=== PATIENT | female | born 1940 | race Caucasian/White ===

== ENCOUNTER 2019-12-15 09:52 | Outpatient (CLI) | payer MEDICARE, SELFPAY ==
[2019-12-15 11:07] LABS: Erythrocyte Sedimentation Rate 14 mm/hr (0-20)
[2019-12-15 11:51] LABS: Alanine Aminotransferase 21 U/L (14-59); Albumin Level 3.8 g/dL (3.4-5.0); Alkaline Phosphatase 85 U/L (46-116); Anion Gap 15.3 mmol/L (7-16); Aspartate Amino Transferase 54 U/L (15-37); Bilirubin,Total 0.6 mg/dL (0.00-1.00); Blood Urea Nitrogen 16 mg/dL (7-18); Calcium 8.9 mg/dL (8.5-10.1); Carbon Dioxide 28 mmol/L (21-32); Chloride 107 mmol/L (98-108); Estimated Glomerular Filt Rate > 60; Glucose 115 mg/dL (70-99); Osmolality Calculated 304 mOsm/kg (285-295); Potassium 4.3 mmol/L (3.5-5.1); Sodium 146 mmol/L (136-145); Total Protein 7.1 g/dL (6.4-8.2)
== END 2019-12-15 09:53 | disposition home or self-care (01) ==
LOC: CHSLAB 09:54
PROVIDERS: PCP Internal Medicine; Visit Provider Internal Medicine
DX: M15.0 Primary generalized (osteo)arthritis (principal); R76.0 Raised antibody titer
CPT/HCPCS: 36415; 80053; 85652; 86038; 86039

== ENCOUNTER 2020-03-17 09:21 | Outpatient (CLI) | payer MEDICARE, SELFPAY ==
[2020-03-17 09:32] LABS: Hematocrit 42.9 % (35.0-42.0); Hemoglobin 14.1 g/dL (11.7-13.8); Mean Corpuscular HGB Conc 32.9 g/dL (32.0-36.0); Mean Corpuscular Hemoglobin 31.3 pg (27.0-31.0); Mean Corpuscular Volume 95.3 fL (78.0-102.0); Mean Platelet Volume 11.5 fl (9.2-11.8); Platelet Count Result 200 K/mm3 (150-420); Red Cell Distribution Width 13.7 % (11.6-14.4); White Blood Count 7.4 K/mm3 (4.8-10.8)
[2020-03-17 09:46] LABS: Add Urine Microscopic? YES; Appearance Urine Clear (Clear); Bilirubin Urine Negative (Negative); Blood Urine Negative (Negative); Color Urine Yellow (Yellow); Glucose Urine UA Negative (Negative); Ketones Urine Negative (Negative); Leukocyte Esterase Ur 1+ (Negative); Nitrate Urine Negative (Negative); Protein Urine Negative (Negative); Urobilinogen Urine 0.2 mg/dL (0.2-1.0)
[2020-03-17 09:51] LABS: Bacteria Urine 1+ /hpf; Mucus Urine Few /lpf; RBC Urine 0-2 /hpf (0-2); Squamous Epithelial Cell Urine Few /hpf (Few)
[2020-03-17 10:05] LABS: Hemoglobin A1C 6.4 % (<5.7)
[2020-03-17 10:10] LABS: Band Neutrophils Percent 0 % (0-6); Basophils Absolute Manual 0.22 K/mm3 (0-0.1); Basophils Percent Manual 3 % (0-1); Eosinophils Absolute Manual 0.96 K/mm3 (0.02-0.5); Eosinophils Percent Manual 13 % (1-6); Lymphocytes Percent Manual 23 % (18-44); Monocytes Absolute Manual 0.51 K/mm3 (0.1-0.90); Monocytes Percent Manual 7 % (3-9); Neutrophils Absolute Manual 3.99 K/mm3 (1.7-7.2); Neutrophils Percent Manual 54 % (46-73); Platelet Estimate Adequate (Adequate); Total Cells Counted 100
[2020-03-17 10:29] LABS: Creatinine Urine 151.65 mg/dL (40-278)
[2020-03-17 10:57] LABS: MALB Creatinine Ratio 11.2 mg/g (0-30)
[2020-03-17 11:16] LABS: Anion Gap 10.3 mmol/L (7-16); Blood Urea Nitrogen 21 mg/dL (7-18); Carbon Dioxide 30 mmol/L (21-32); Chloride 105 mmol/L (98-108); Estimated Glomerular Filt Rate 56; Potassium 4.3 mmol/L (3.5-5.1); Sodium 141 mmol/L (136-145)
[2020-03-17 11:17] LABS: Alanine Aminotransferase 18 U/L (14-59); Albumin Level 3.7 g/dL (3.4-5.0); Aspartate Amino Transferase 47 U/L (15-37); Bilirubin,Total 0.6 mg/dL (0.00-1.00); Calcium 9.1 mg/dL (8.5-10.1); Creatine Kinase 92 U/L (26-192); Glucose 120 mg/dL (70-99); Osmolality Calculated 296 mOsm/kg (285-295); Total Protein 6.7 g/dL (6.4-8.2); Uric Acid 4.1 mg/dL (2.6-6.0)
[2020-03-17 11:18] LABS: Alkaline Phosphatase 78 U/L (46-116); Cholesterol 172 mg/dL (0-200); HDL Direct 97 mg/dL (40-60); LDL Cholesterol Calculated 59 mg/dL (<130); Triglycerides 79 mg/dL (0-150)
[2020-03-21 20:24] LABS: Vitamin D 25 Hydroxy 25 ng/mL (30-100)
== END 2020-03-17 09:22 | disposition home or self-care (01) ==
LOC: CHSLAB 09:24
PROVIDERS: PCP Internal Medicine; Visit Provider Internal Medicine
DX: E78.2 Mixed hyperlipidemia (principal); E11.9 Type 2 diabetes mellitus without complications; I10 Essential (primary) hypertension; E79.0 Hyperuricemia without signs of inflammatory arthritis and tophaceous disease; M81.0 Age-related osteoporosis without current pathological fracture
CPT/HCPCS: 36415; 80053; 80061; 81001; 82043; 82306; 82550; 83036; 84550; 85025

== ENCOUNTER 2020-07-04 16:03 | Outpatient (CLI) | payer MEDICARE, SELFPAY ==
[2020-07-04 17:45] LABS: Alanine Aminotransferase 20 U/L (14-59); Albumin Level 4.1 g/dL (3.4-5.0); Alkaline Phosphatase 97 U/L (46-116); Anion Gap 9 mmol/L (8-16); Aspartate Amino Transferase 45 U/L (15-37); Bilirubin,Total 0.4 mg/dL (0.00-1.00); Blood Urea Nitrogen 19 mg/dL (7-18); Calcium 9.3 mg/dL (8.5-10.1); Carbon Dioxide 30 mmol/L (21-32); Chloride 103 mmol/L (98-108); Estimated Glomerular Filt Rate 56; Glucose 103 mg/dL (70-99); Osmolality Calculated 296 mOsm/kg (285-295); Potassium 4.4 mmol/L (3.5-5.1); Sodium 142 mmol/L (136-145); Total Protein 7.1 g/dL (6.4-8.2)
== END 2020-07-04 16:04 | disposition home or self-care (01) ==
LOC: CHSLAB 16:05
PROVIDERS: PCP Internal Medicine; Visit Provider Internal Medicine
DX: R94.5 Abnormal results of liver function studies (principal); I10 Essential (primary) hypertension
CPT/HCPCS: 36415; 80053

== ENCOUNTER 2020-09-26 08:12 | Outpatient (CLI) | payer MEDICARE, SELFPAY ==
[2020-09-26 08:27] LABS: Appearance Urine Clear (Clear); Basophils Absolute Auto 0.06 K/mm3 (0.00-0.10); Bilirubin Urine Negative (Negative); Color Urine Yellow (Yellow); Eosinophils Absolute Auto 0.31 K/mm3 (0.02-0.50); Eosinophils Percent Auto 5.1 % (1.0-6.0); Glucose Urine UA Negative (Negative); Hematocrit 43.2 % (35.0-42.0); Immature Granulocyte Absolute 0.02 K/mm3 (0.00-0.00); Immature Granulocyte Percent A 0.3 % (0.0-0.0); Ketones Urine Negative (Negative); Leukocyte Esterase Ur Negative (Negative); Lymphocytes Absolute Auto 1.72 K/mm3 (1.10-4.50); Lymphocytes Percent Auto 28.4 % (18.0-42.0); Mean Corpuscular HGB Conc 32.4 g/dL (32.0-36.0); Mean Corpuscular Hemoglobin 31.6 pg (27.0-31.0); Mean Corpuscular Volume 97.5 fL (78.0-102.0); Mean Platelet Volume 11.3 fl (9.2-11.8); Monocytes Absolute Auto 0.45 K/mm3 (0.10-0.90); Monocytes Percent Auto 7.4 % (2.0-11.0); Neutrophils Absolute Auto 3.5 K/mm3 (1.7-7.2); Neutrophils Percent Auto 57.8 % (50.0-70.0); Nitrate Urine Negative (Negative); Platelet Count Result 191 K/mm3 (150-420); Protein Urine Negative (Negative); Red Blood Count 4.43 M/mm3 (4.20-5.40); Red Cell Distribution Width 13.7 % (11.6-14.4); Specific Grav Ur 1.025 (1.010-1.020); Urobilinogen Urine 0.2 mg/dL (0.2-1.0); White Blood Count 6.1 K/mm3 (4.8-10.8); pH Urine 5.5 (5.0-8.0)
[2020-09-26 08:33] LABS: Add Urine Microscopic? YES; Blood Urine Trace-lysed (Negative); RBC Urine 0-2 /hpf (0-2)
[2020-09-26 08:34] LABS: Bacteria Urine None seen /hpf; Squamous Epithelial Cell Urine Rare /hpf (Few); WBC Urine 0-3 /hpf (0-3)
[2020-09-26 08:35] LABS: Creatinine Urine 93.29 mg/dL (40-278); MALB Creatinine Ratio 21.7 mg/g (0-30); Microalbumin Urine Random 20.3 mg/L
[2020-09-26 08:39] LABS: Hemoglobin A1C 6.4 % (<5.7)
[2020-09-26 09:32] LABS: Alanine Aminotransferase 19 U/L (14-59); Alkaline Phosphatase 73 U/L (46-116); Anion Gap 9 mmol/L (8-16); Aspartate Amino Transferase 44 U/L (15-37); Bilirubin,Total 0.8 mg/dL (0.00-1.00); Blood Urea Nitrogen 15 mg/dL (7-18); Calcium 9.6 mg/dL (8.5-10.1); Carbon Dioxide 29 mmol/L (21-32); Chloride 104 mmol/L (98-108); Cholesterol 179 mg/dL (0-200); Creatine Kinase 66 U/L (26-192); Estimated Glomerular Filt Rate 57; Free T3 2.89 pg/mL (2.18-3.98); Glucose 125 mg/dL (70-99); HDL Direct 91 mg/dL (40-60); LDL Cholesterol Calculated 67 mg/dL (<130); Osmolality Calculated 295 mOsm/kg (285-295); Sodium 142 mmol/L (136-145); Thyroid Stimulating Hormone 2.59 uIU/mL (0.36-3.74); Triglycerides 106 mg/dL (0-150); Uric Acid 3.8 mg/dL (2.6-6.0)
[2020-09-26 09:52] LABS: Free T4 Free Thyroxine 1.31 ng/dL (0.76-1.46)
== END 2020-09-26 08:13 | disposition home or self-care (01) ==
LOC: CHSLAB 08:13
PROVIDERS: PCP Internal Medicine; Visit Provider Internal Medicine
DX: E79.0 Hyperuricemia without signs of inflammatory arthritis and tophaceous disease (principal); E11.9 Type 2 diabetes mellitus without complications; I10 Essential (primary) hypertension; E78.2 Mixed hyperlipidemia; E04.1 Nontoxic single thyroid nodule; C50.911 Malignant neoplasm of unspecified site of right female breast
CPT/HCPCS: 36415; 80053; 80061; 81001; 82043; 82550; 83036; 84439; 84443; 84481; 84550; 85025

== ENCOUNTER 2020-10-19 10:25 | Outpatient (CLI) | payer MEDICARE, SELFPAY ==
--- NOTE | 2020-10-21 10:24 | WPDHOLTEREM ---
Holter/Event Monitor Holter/Event Monitor Date of procedure: 10/21/20 Procedure Type: 24 hour holter monitor Indications: Palpitations Conclusion: 1. 24 hour holter monitor on 10/19/19. 2. Underlying rhythm is sinus rhythm. HR range 42-109 bpm; average HR 64 bpm. 3. There are 744 premature supraventricular complexes, 134 supraventricular couplets, 2 supraventricular triplets, 23 supraventricular bigeminy and 3 supraventricular trigeminy. No supraventricular tachycardia. 4. There are 10 premature ventricular complexes. No ventricular tachycardia. 5. No sinoatrial or atrioventricular blocks. There is a pause of about 2 seconds at 03:08. 6. No symptoms available for correlation.
== END 2020-10-19 10:26 | disposition home or self-care (01) ==
PROVIDERS: PCP Internal Medicine; Visit Provider Internal Medicine
DX: I49.9 Cardiac arrhythmia, unspecified (principal)
CPT/HCPCS: 93225; 93226

== ENCOUNTER 2020-10-31 16:27 | Outpatient (CLI) | payer OTHER, SELFPAY ==
--- NOTE | ~2020-10-31 | CT_ITS ---
EXAMINATION: CT chest abdomen w con DATE: 10/31/2020 18:02 INDICATION: Left chest and left upper quadrant pain TECHNIQUE: Transaxial computed tomographic images of the chest and abdomen were obtained after the ad ministration of 100 cc of Omnipaque 350 intravenous contrast. The dose-length product (DLP) was 1218. 22 mGy-cm. Automated exposure control and iterative reconstruction technique were employed. COMPARISON: 07/16/2016 FINDINGS: CHEST CT: There are fractures of the left seventh through 10th ribs, minimally displaced at the ninth and 10th ribs. There are airspace opacities of the lingula and left lower lobe. A small left pleural effusion is present. There is no pneumothorax. No pathologically enlarged thoracic lymph nodes are identified. The heart size is normal. A small sliding hiatal hernia is noted. The thoracic aorta is unremarkable . There is calcified atherosclerosis. ABDOMEN CT: The liver, spleen, pancreas, gallbladder, and adrenal glands are normal. The left kidney is unremarka ble. There is a 2.7 cm cyst in the lower pole of the right kidney. There is no free intraperitoneal g as or evidence of bowel obstruction. There are no pathologically enlarged abdominal lymph nodes. Ther e is no free abdominal fluid. There is severe lumbar spondylosis. Colonic diverticulosis is present w ithout evidence of diverticulitis. IMPRESSION: 1. Fractures of the left seventh through 10th ribs, minimally displaced at the 9 and 10th ribs. 2. Airspace opacities in the lingula and left lower lobe adjacent to the rib fractures which could re flect atelectasis or possibly pulmonary contusion. 3. Small left pleural effusion. Reviewed, dictated and finalized at location A. ED HEALTH INSTRUCTOR IMPRESSION: 1. Fractures of the left seventh through 10th ribs, minimally displaced at the 9 and 10th ribs. 2. Airspace opacities in the lingula and left lower lobe adjacent to the rib fr actures which could reflect atelectasis or possibly pulmonary contusion. 3. Small left pleural effusion.
[2020-10-31 17:10] LABS: Estimated Glomerular Filt Rate > 60
== END 2020-10-31 16:28 | disposition home or self-care (01) ==
PROVIDERS: PCP Internal Medicine; Visit Provider Internal Medicine
DX: R07.9 Chest pain, unspecified (principal); R10.12 Left upper quadrant pain
CPT/HCPCS: 71260; 74160; Q9967

== ENCOUNTER 2020-11-21 09:38 | Outpatient (CLI) | payer OTHER, SELFPAY ==
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
== END 2020-11-21 09:39 | disposition home or self-care (01) ==
LOC: CHSIMG 09:41
PROVIDERS: PCP Internal Medicine; Visit Provider Internal Medicine
DX: R07.81 Pleurodynia (principal)
CPT/HCPCS: 71046

== ENCOUNTER 2021-03-27 08:04 | Outpatient (CLI) | payer MEDICARE, SELFPAY ==
[2021-03-27 08:14] LABS: Basophils Absolute Auto 0.07 K/mm3 (0.00-0.10); Eosinophils Absolute Auto 0.35 K/mm3 (0.02-0.50); Eosinophils Percent Auto 4.9 % (1.0-6.0); Hematocrit 41.6 % (35.0-42.0); Immature Granulocyte Absolute 0.03 K/mm3 (0.00-0.00); Immature Granulocyte Percent A 0.4 % (0.0-0.0); Lymphocytes Absolute Auto 1.88 K/mm3 (1.10-4.50); Lymphocytes Percent Auto 26.4 % (18.0-42.0); Mean Corpuscular HGB Conc 33.7 g/dL (32.0-36.0); Mean Corpuscular Hemoglobin 32.5 pg (27.0-31.0); Mean Corpuscular Volume 96.5 fL (78.0-102.0); Mean Platelet Volume 10.6 fl (9.2-11.8); Monocytes Absolute Auto 0.58 K/mm3 (0.10-0.90); Monocytes Percent Auto 8.1 % (2.0-11.0); Neutrophils Absolute Auto 4.2 K/mm3 (1.7-7.2); Neutrophils Percent Auto 59.2 % (50.0-70.0); Platelet Count Result 171 K/mm3 (150-420); Red Blood Count 4.31 M/mm3 (4.20-5.40); Red Cell Distribution Width 13.1 % (11.6-14.4); White Blood Count 7.1 K/mm3 (4.8-10.8)
[2021-03-27 08:20] LABS: Appearance Urine Clear (Clear); Bilirubin Urine Negative (Negative); Blood Urine Negative (Negative); Glucose Urine UA Negative (Negative); Ketones Urine Negative (Negative); Leukocyte Esterase Ur 1+ (Negative); Nitrate Urine Negative (Negative); Protein Urine Negative (Negative); Specific Grav Ur 1.015 (1.010-1.020); Urobilinogen Urine 0.2 mg/dL (0.2-1.0); pH Urine 5.5 (5.0-8.0)
[2021-03-27 08:27] LABS: Hemoglobin A1C 6.7 % (<5.7)
[2021-03-27 08:30] LABS: Add Urine Microscopic? YES; Color Urine Light Yellow (Yellow)
[2021-03-27 08:32] LABS: RBC Urine 0-2 /hpf (0-2); Squamous Epithelial Cell Urine Few /hpf (Few)
[2021-03-27 08:33] LABS: Bacteria Urine 2+ /hpf
[2021-03-27 08:58] LABS: Alanine Aminotransferase 27 U/L (14-59); Albumin Level 3.8 g/dL (3.4-5.0); Alkaline Phosphatase 72 U/L (46-116); Anion Gap 10 mmol/L (8-16); Aspartate Amino Transferase 45 U/L (15-37); Bilirubin,Total 0.7 mg/dL (0.00-1.00); Blood Urea Nitrogen 18 mg/dL (7-18); Calcium 9.2 mg/dL (8.5-10.1); Carbon Dioxide 28 mmol/L (21-32); Chloride 103 mmol/L (98-108); Cholesterol 165 mg/dL (0-200); Creatine Kinase 108 U/L (26-192); Estimated Glomerular Filt Rate 51; Glucose 141 mg/dL (70-99); HDL Direct 86 mg/dL (40-60); LDL Cholesterol Calculated 62 mg/dL (<130); Osmolality Calculated 295 mOsm/kg (285-295); Sodium 141 mmol/L (136-145); Total Protein 6.6 g/dL (6.4-8.2); Triglycerides 84 mg/dL (0-150); Uric Acid 4.5 mg/dL (2.6-6.0)
== END 2021-03-27 08:05 | disposition home or self-care (01) ==
LOC: CHSLAB 08:07
PROVIDERS: PCP Internal Medicine; Visit Provider Internal Medicine
DX: E11.9 Type 2 diabetes mellitus without complications (principal); I10 Essential (primary) hypertension; E78.2 Mixed hyperlipidemia; E79.0 Hyperuricemia without signs of inflammatory arthritis and tophaceous disease
CPT/HCPCS: 36415; 80053; 80061; 81001; 82550; 83036; 84550; 85025

== ENCOUNTER 2021-04-18 09:02 | Outpatient (CLI) | payer MEDICARE, SELFPAY ==
[2021-04-18 10:58] LABS: SARS-CoV-2 RNA PCR Negative (Negative)
== END 2021-04-18 09:03 | disposition home or self-care (01) ==
LOC: CHSLAB 09:05
PROVIDERS: PCP Internal Medicine; Visit Provider Internal Medicine
DX: J06.9 Acute upper respiratory infection, unspecified (principal); Z20.822 Contact with and (suspected) exposure to COVID-19
CPT/HCPCS: C9803; U0003; U0005

== ENCOUNTER 2021-07-14 09:17 | Outpatient (CLI) | payer MEDICARE, SELFPAY ==
[2021-07-14 09:55] LABS: Hemoglobin A1C 6.1 % (<5.7)
[2021-07-14 10:12] LABS: Alanine Aminotransferase 25 U/L (14-59); Alkaline Phosphatase 61 U/L (46-116); Anion Gap 9 mmol/L (8-16); Aspartate Amino Transferase 40 U/L (15-37); Bilirubin,Total 0.7 mg/dL (0.00-1.00); Blood Urea Nitrogen 13 mg/dL (7-18); Calcium 9.1 mg/dL (8.5-10.1); Carbon Dioxide 29 mmol/L (21-32); Chloride 103 mmol/L (98-108); Estimated Glomerular Filt Rate > 60; Glucose 125 mg/dL (70-99); Osmolality Calculated 293 mOsm/kg (285-295); Potassium 4.3 mmol/L (3.5-5.1); Sodium 141 mmol/L (136-145); Total Protein 6.6 g/dL (6.4-8.2)
== END 2021-07-14 09:18 | disposition home or self-care (01) ==
LOC: CHSLAB 09:19
PROVIDERS: PCP Internal Medicine; Visit Provider Internal Medicine
DX: E11.9 Type 2 diabetes mellitus without complications (principal)
CPT/HCPCS: 36415; 80053; 83036

== ENCOUNTER 2021-07-26 08:14 | Outpatient (CLI) | payer MEDICARE, SELFPAY ==
--- NOTE | ~2021-07-26 | MR_ITS ---
EXAMINATION: MR shoulder LT wo con DATE: 07/26/2021 09:12 INDICATION: Left rotator cuff tear. Ground level fall. TECHNIQUE: Magnetic resonance imaging (MRI) of the left shoulder was performed without intravenous co ntrast. Sequences included axial PD-weighted FS FSE, coronal oblique PD-weighted FS FSE, coronal obli que T2-weighted FS FSE, sagittal PD-weighted FS FSE, and sagittal T1-weighted SE. COMPARISON: None. FINDINGS: Evaluation mild to moderately limited by some degree of motion artifact or blurring on all sequences. Coracoacromial arch: The acromion undersurface is curved in morphology (type II). The coracoacromial ligament is normal. M ild acromioclavicular osteoarthritis. Rotator cuff: Severe supraspinatus and infraspinatus tendinopathy. Full-thickness tear along the superior facet lit tplate of the entire supraspinatus tendon and anterior half of the needle facet footplate of the infr aspinatus tendon. The more posterior portion of the tendon is attenuated with partial-thickness artic ular sided tear involving the posterior half of the infraspinatus tendon. The attenuated and frayed a ppearing supraspinatus tear margin is retracted approximately 2 cm medially to the level of the apex of the humeral head. The teres minor tendon is normal. Mild tendinopathy of the cephalad aspect of th e subscapularis tendon without discrete tear. There is mild feathery muscular edema extending mediall y into the supraspinatus and infraspinatus muscle belly which along with the absence of significant a symmetric muscular atrophy suggests the tear is relatively recent. Biceps tendon, glenoid labrum and glenohumeral cartilage: Long head of the biceps tendon is normal. Glenoid labrum is normal. Cartilage appears grossly normal with no evident cartilage defects or irregularity. Assessment of the cartilage is however limited by motion artifact. Fluid: Moderate-sized glenohumeral joint effusion collecting primarily in the axillary recess where there ar e couple small ovoid loose bodies, the larger measuring 7 x 3 mm. There is extension of a small amoun t of joint fluid through the rotator cuff tear defect into the subacromial/subdeltoid bursa. Bones: Normal marrow signal with no edema, fracture or pathologic marrow replacing process. IMPRESSION: 1. Evaluation mild to moderately limited by motion artifact is some degree on all sequences. 2. Severe supraspinatus and infraspinatus tendinopathy with full-thickness tear involving the entire supraspinatus and inferior half of the infraspinatus tendon. Reviewed, dictated and finalized at location A. IMPRESSION: 1. Evaluation mild to moderately limited by motion artifact is some degree on a ll sequences. 2. Severe supraspinatus and infraspinatus tendinopathy with full-thickness tear involving the entire supraspinatus and inferior half of the infraspinatus tend on.
== END 2021-07-26 08:15 | disposition home or self-care (01) ==
LOC: CHSIMG 08:15
PROVIDERS: PCP Internal Medicine; Visit Provider Internal Medicine
DX: M25.512 Pain in left shoulder (principal); M75.102 Unspecified rotator cuff tear or rupture of left shoulder, not specified as traumatic
CPT/HCPCS: 73221

== ENCOUNTER 2021-10-31 09:14 | Outpatient (CLI) | payer MEDICARE, SELFPAY ==
[2021-10-31 09:31] LABS: Basophils Absolute Auto 0.09 K/mm3 (0.00-0.10); Basophils Percent Auto 1.6 % (0.0-1.0); Eosinophils Absolute Auto 0.44 K/mm3 (0.02-0.50); Hematocrit 43.8 % (35.0-42.0); Hemoglobin 14.4 g/dL (11.7-13.8); Immature Granulocyte Absolute 0.01 K/mm3 (0.00-0.00); Immature Granulocyte Percent A 0.2 % (0.0-0.0); Lymphocytes Absolute Auto 1.65 K/mm3 (1.10-4.50); Lymphocytes Percent Auto 29.8 % (18.0-42.0); Mean Corpuscular HGB Conc 32.9 g/dL (32.0-36.0); Mean Corpuscular Hemoglobin 32.4 pg (27.0-31.0); Mean Corpuscular Volume 98.6 fL (78.0-102.0); Mean Platelet Volume 11.1 fl (9.2-11.8); Monocytes Absolute Auto 0.38 K/mm3 (0.10-0.90); Monocytes Percent Auto 6.9 % (2.0-11.0); Neutrophils Percent Auto 53.5 % (50.0-70.0); Platelet Count Result 192 K/mm3 (150-420); Red Blood Count 4.44 M/mm3 (4.20-5.40); Red Cell Distribution Width 13.2 % (11.6-14.4); White Blood Count 5.5 K/mm3 (4.8-10.8)
[2021-10-31 09:34] LABS: Appearance Urine Clear (Clear); Bilirubin Urine Negative (Negative); Color Urine Light Yellow (Yellow); Glucose Urine UA Negative (Negative); Ketones Urine Negative (Negative); Leukocyte Esterase Ur 1+ (Negative); Nitrate Urine Negative (Negative); Protein Urine Negative (Negative); Specific Grav Ur 1.015 (1.010-1.020); Urobilinogen Urine 0.2 mg/dL (0.2-1.0)
[2021-10-31 09:39] LABS: Add Urine Microscopic? YES; Blood Urine Trace-lysed (Negative)
[2021-10-31 09:40] LABS: Bacteria Urine Trace /hpf; RBC Urine 0-2 /hpf (0-2); Squamous Epithelial Cell Urine Moderate /hpf (Few)
[2021-10-31 09:54] LABS: Creatinine Urine 130.04 mg/dL (40-278); Microalbumin Urine Random 32.6 mg/L
[2021-10-31 10:18] LABS: Alanine Aminotransferase 20 U/L (14-59); Albumin Level 3.9 g/dL (3.4-5.0); Alkaline Phosphatase 62 U/L (46-116); Anion Gap 9 mmol/L (8-16); Aspartate Amino Transferase 43 U/L (15-37); Bilirubin,Total 0.7 mg/dL (0.00-1.00); Blood Urea Nitrogen 11 mg/dL (7-18); Calcium 9.1 mg/dL (8.5-10.1); Carbon Dioxide 29 mmol/L (21-32); Chloride 102 mmol/L (98-108); Cholesterol 182 mg/dL (0-200); Estimated Glomerular Filt Rate > 60; Free T3 2.76 pg/mL (2.18-3.98); Free T4 Free Thyroxine 1.29 ng/dL (0.76-1.46); Glucose 142 mg/dL (70-99); HDL Direct 102 mg/dL (40-60); LDL Cholesterol Calculated 63 mg/dL (<130); Osmolality Calculated 291 mOsm/kg (285-295); Sodium 140 mmol/L (136-145); Thyroid Stimulating Hormone 1.44 uIU/mL (0.36-3.74); Total Protein 6.8 g/dL (6.4-8.2); Triglycerides 86 mg/dL (0-150); Uric Acid 3.8 mg/dL (2.6-6.0)
== END 2021-10-31 09:15 | disposition home or self-care (01) ==
LOC: CHSLAB 09:16
PROVIDERS: PCP Internal Medicine; Visit Provider Internal Medicine
DX: E11.9 Type 2 diabetes mellitus without complications (principal); I10 Essential (primary) hypertension; E78.2 Mixed hyperlipidemia; E79.0 Hyperuricemia without signs of inflammatory arthritis and tophaceous disease; E04.1 Nontoxic single thyroid nodule; M15.0 Primary generalized (osteo)arthritis
CPT/HCPCS: 36415; 80053; 80061; 81001; 82043; 83036; 84439; 84443; 84481; 84550; 85025

== ENCOUNTER 2022-04-24 08:56 | Outpatient (CLI) | payer MEDICARE, SELFPAY ==
[2022-04-24 09:11] LABS: Basophils Absolute Auto 0.08 K/mm3 (0.00-0.10); Basophils Percent Auto 1.4 % (0.0-1.0); Eosinophils Absolute Auto 0.56 K/mm3 (0.02-0.50); Hematocrit 42.2 % (35.0-42.0); Immature Granulocyte Absolute 0.02 K/mm3 (0.00-0.00); Immature Granulocyte Percent A 0.4 % (0.0-0.0); Lymphocytes Absolute Auto 1.46 K/mm3 (1.10-4.50); Mean Corpuscular HGB Conc 33.2 g/dL (32.0-36.0); Mean Corpuscular Hemoglobin 32.6 pg (27.0-31.0); Mean Corpuscular Volume 98.1 fL (78.0-102.0); Mean Platelet Volume 10.5 fl (9.2-11.8); Monocytes Absolute Auto 0.44 K/mm3 (0.10-0.90); Monocytes Percent Auto 7.8 % (2.0-11.0); Neutrophils Absolute Auto 3.1 K/mm3 (1.7-7.2); Neutrophils Percent Auto 54.4 % (50.0-70.0); Platelet Count Result 197 K/mm3 (150-420); Red Cell Distribution Width 13.2 % (11.6-14.4); White Blood Count 5.6 K/mm3 (4.8-10.8)
[2022-04-24 09:16] LABS: Add Urine Microscopic? YES; Appearance Urine Clear (Clear); Bilirubin Urine Negative (Negative); Blood Urine Negative (Negative); Color Urine Light Yellow (Yellow); Glucose Urine UA Negative (Negative); Ketones Urine Negative (Negative); Leukocyte Esterase Ur Trace (Negative); Nitrate Urine Negative (Negative); Protein Urine Negative (Negative); Urobilinogen Urine 0.2 mg/dL (0.2-1.0)
[2022-04-24 09:20] LABS: Bacteria Urine Trace /hpf; RBC Urine None seen /hpf (0-2); Squamous Epithelial Cell Urine Few /hpf (Few); WBC Urine 0-3 /hpf (0-3)
[2022-04-24 09:24] LABS: Creatinine Urine 73.33 mg/dL (40-278); Microalbumin Urine Random 15.4 mg/L
[2022-04-24 09:25] LABS: Hemoglobin A1C 6.1 % (<5.7)
[2022-04-24 09:36] LABS: Alanine Aminotransferase 21 U/L (14-59); Albumin Level 3.9 g/dL (3.4-5.0); Alkaline Phosphatase 63 U/L (46-116); Anion Gap 8 mmol/L (8-16); Aspartate Amino Transferase 47 U/L (15-37); Bilirubin,Total 0.7 mg/dL (0.00-1.00); Blood Urea Nitrogen 11 mg/dL (7-18); Calcium 9.1 mg/dL (8.5-10.1); Carbon Dioxide 27 mmol/L (21-32); Chloride 104 mmol/L (98-108); Cholesterol 182 mg/dL (0-200); Creatine Kinase 72 U/L (26-192); Estimated Glomerular Filt Rate > 60; Free T4 Free Thyroxine 1.32 ng/dL (0.76-1.46); Glucose 118 mg/dL (70-99); HDL Direct 93 mg/dL (40-60); LDL Cholesterol Calculated 72 mg/dL (<130); Osmolality Calculated 288 mOsm/kg (285-295); Potassium 3.8 mmol/L (3.5-5.1); Sodium 139 mmol/L (136-145); Thyroid Stimulating Hormone 1.39 uIU/mL (0.36-3.74); Total Protein 7.1 g/dL (6.4-8.2); Triglycerides 85 mg/dL (0-150); Uric Acid 3.8 mg/dL (2.6-6.0)
[2022-04-28 18:59] LABS: Vitamin D 25 Hydroxy 48 ng/mL (30-100)
== END 2022-04-24 08:57 | disposition home or self-care (01) ==
LOC: CHSLAB 09:00
PROVIDERS: PCP Internal Medicine; Visit Provider Internal Medicine
DX: R94.5 Abnormal results of liver function studies (principal); I10 Essential (primary) hypertension; E78.2 Mixed hyperlipidemia; E11.9 Type 2 diabetes mellitus without complications; I49.9 Cardiac arrhythmia, unspecified; M81.0 Age-related osteoporosis without current pathological fracture; E79.0 Hyperuricemia without signs of inflammatory arthritis and tophaceous disease
CPT/HCPCS: 36415; 80053; 80061; 81001; 82043; 82306; 82550; 83036; 84439; 84443; 84550; 85025

== ENCOUNTER 2022-06-26 08:48 | Outpatient (CLI) | payer MEDICARE, SELFPAY ==
[2022-06-26 09:28] LABS: Anion Gap 5 mmol/L (8-16); Blood Urea Nitrogen 16 mg/dL (7-18); Calcium 8.7 mg/dL (8.5-10.1); Carbon Dioxide 28 mmol/L (21-32); Chloride 100 mmol/L (98-108); Estimated Glomerular Filt Rate 55; Glucose 148 mg/dL (70-99); Osmolality Calculated 280 mOsm/kg (285-295); Sodium 133 mmol/L (136-145)
== END 2022-06-26 08:49 | disposition home or self-care (01) ==
LOC: CHSLAB 08:51
PROVIDERS: PCP Internal Medicine; Visit Provider Internal Medicine
DX: I10 Essential (primary) hypertension (principal)
CPT/HCPCS: 36415; 80048

== ENCOUNTER 2022-07-19 08:58 | Outpatient (CLI) | payer MEDICARE, SELFPAY ==
[2022-07-19 09:49] LABS: Alanine Aminotransferase 17 U/L (14-59); Albumin Level 3.8 g/dL (3.4-5.0); Alkaline Phosphatase 66 U/L (46-116); Anion Gap 6 mmol/L (8-16); Aspartate Amino Transferase 42 U/L (15-37); Bilirubin,Total 0.7 mg/dL (0.00-1.00); Blood Urea Nitrogen 13 mg/dL (7-18); Carbon Dioxide 31 mmol/L (21-32); Chloride 103 mmol/L (98-108); Estimated Glomerular Filt Rate 57; Glucose 128 mg/dL (70-99); Osmolality Calculated 292 mOsm/kg (285-295); Potassium 4.2 mmol/L (3.5-5.1); Sodium 140 mmol/L (136-145); Total Protein 6.5 g/dL (6.4-8.2)
== END 2022-07-19 08:59 | disposition home or self-care (01) ==
LOC: CHSLAB 08:59
PROVIDERS: PCP Internal Medicine; Visit Provider Internal Medicine
DX: I10 Essential (primary) hypertension (principal)
CPT/HCPCS: 36415; 80053

== ENCOUNTER 2022-07-23 14:07 | Outpatient (CLI) | payer MEDICARE, SELFPAY | END 2022-07-23 14:08 | disposition home or self-care (01) | LOC: CHSLAB 14:09 | PROVIDERS: PCP Internal Medicine; Visit Provider Internal Medicine | DX: L82.1 Other seborrheic keratosis (principal) | CPT/HCPCS: 88305 ==

== ENCOUNTER 2022-11-08 08:51 | Outpatient (CLI) | payer MEDICARE, SELFPAY ==
[2022-11-08 09:14] LABS: Hematocrit 40.7 % (35.0-42.0); Hemoglobin 13.3 g/dL (11.7-13.8); Mean Corpuscular HGB Conc 32.7 g/dL (32.0-36.0); Mean Corpuscular Hemoglobin 32.5 pg (27.0-31.0); Mean Corpuscular Volume 99.5 fL (78.0-102.0); Mean Platelet Volume 11.2 fl (9.2-11.8); Platelet Count Result 196 K/mm3 (150-420); Red Blood Count 4.09 M/mm3 (4.20-5.40); Red Cell Distribution Width 12.8 % (11.6-14.4); White Blood Count 7.2 K/mm3 (4.8-10.8)
[2022-11-08 09:15] LABS: Add Urine Microscopic? YES; Appearance Urine Clear (Clear); Bilirubin Urine Negative (Negative); Blood Urine Negative (Negative); Color Urine Light Yellow (Yellow); Glucose Urine UA Negative (Negative); Ketones Urine Negative (Negative); Leukocyte Esterase Ur 1+ LEU/UL (Negative); Nitrate Urine Negative (Negative); Protein Urine Negative (Negative); Urobilinogen Urine 0.2 mg/dL (0.2-1.0); pH Urine 6.5 (5.0-8.0)
[2022-11-08 09:22] LABS: Bacteria Urine Trace /hpf; RBC Urine None seen /hpf (0-2); Squamous Epithelial Cell Urine Few /hpf (Few); WBC Urine 0-3 /hpf (0-3)
[2022-11-08 09:37] LABS: Creatinine Urine 142.44 mg/dL (40-278); MALB Creatinine Ratio 29.9 mg/g (0-30); Microalbumin Urine Random 42.6 mg/L
[2022-11-08 09:47] LABS: Band Neutrophils Percent 0 % (0-6); Eosinophils Absolute Manual 1.29 K/mm3 (0.02-0.5); Eosinophils Percent Manual 18 % (1-6); Lymphocytes Absolute Manual 1.58 K/mm3 (1.1-4.5); Lymphocytes Percent Manual 22 % (18-44); Monocytes Absolute Manual 0.36 K/mm3 (0.1-0.90); Monocytes Percent Manual 5 % (3-9); Neutrophils Absolute Manual 3.88 K/mm3 (1.7-7.2); Neutrophils Percent Manual 54 % (46-73); Total Cells Counted 100
[2022-11-08 09:48] LABS: Basophils Absolute Manual 0.07 K/mm3 (0-0.1); Basophils Percent Manual 1 % (0-1); Platelet Estimate Adequate (Adequate)
[2022-11-08 10:16] LABS: Alanine Aminotransferase 18 U/L (14-59); Albumin Level 3.9 g/dL (3.4-5.0); Alkaline Phosphatase 61 U/L (46-116); Anion Gap 9 mmol/L (8-16); Aspartate Amino Transferase 41 U/L (15-37); Bilirubin,Total 0.6 mg/dL (0.00-1.00); Blood Urea Nitrogen 12 mg/dL (7-18); Calcium 8.9 mg/dL (8.5-10.1); Carbon Dioxide 31 mmol/L (21-32); Chloride 104 mmol/L (98-108); Cholesterol 190 mg/dL (0-200); Creatine Kinase 67 U/L (26-192); Estimated Glomerular Filt Rate > 60; Free T4 Free Thyroxine 1.22 ng/dL (0.76-1.46); Glucose 132 mg/dL (70-99); HDL Direct 100 mg/dL (40-60); LDL Cholesterol Calculated 70 mg/dL (<130); Osmolality Calculated 299 mOsm/kg (285-295); Potassium 4.1 mmol/L (3.5-5.1); Sodium 144 mmol/L (136-145); Thyroid Stimulating Hormone 1.76 uIU/mL (0.36-3.74); Total Protein 6.7 g/dL (6.4-8.2); Triglycerides 101 mg/dL (0-150)
== END 2022-11-08 08:52 | disposition home or self-care (01) ==
PROVIDERS: PCP Internal Medicine; Visit Provider Internal Medicine
DX: E78.2 Mixed hyperlipidemia (principal); E11.9 Type 2 diabetes mellitus without complications; E03.9 Hypothyroidism, unspecified; E79.0 Hyperuricemia without signs of inflammatory arthritis and tophaceous disease; N39.0 Urinary tract infection, site not specified
CPT/HCPCS: 36415; 80053; 80061; 81001; 82043; 82550; 83036; 84439; 84443; 85025; 87086; 87088

== ENCOUNTER 2022-11-12 13:50 | Outpatient (CLI) | payer MEDICARE, SELFPAY ==
[2022-11-12 14:41] LABS: CRP < 0.5 mg/dL (0.0-0.9)
[2022-11-12 15:10] LABS: Erythrocyte Sedimentation Rate 5 mm/hr (0-20)
[2022-11-19 13:22] LABS: ANCA Screen Negative (Negative)
[2022-11-20 00:53] LABS: Immunoglobulin E 66 kU/L (<=114)
== END 2022-11-12 13:51 | disposition home or self-care (01) ==
LOC: CHSLAB 13:53
PROVIDERS: PCP Internal Medicine; Visit Provider Internal Medicine
DX: D72.10 Eosinophilia, unspecified (principal)
CPT/HCPCS: 36415; 82785; 85652; 86036; 86140

== ENCOUNTER 2022-11-20 07:17 | Outpatient (CLI) | payer MEDICARE, SELFPAY ==
--- NOTE | 2022-11-22 19:47 | WPDHOLTEREM ---
Holter/Event Monitor Holter/Event Monitor Date of procedure: 11/20/22 Holter/Event Procedure: 24 Hr Holter Monitor Indications: Palpitations Conclusion: 1. 24 hour holter monitor on 11/20/22. 2. Underlying rhythm is sinus rhythm. HR range 40-103 bpm; average HR 65 bpm. HR at 40 bpm was at 08:28. 3. There are 2,312 premature supraventricular complexes, 463 supraventricular couplets, 31 supraventricular bigeminy and 202 supraventricular trigeminy. 4. There are 2 premature ventricular complexes. No ventricular tachycardia. 5. No sinoatrial or atrioventricular blocks. No significant pauses greater than 2 seconds. 6. No symptoms available for correlation.
== END 2022-11-20 07:18 | disposition home or self-care (01) ==
LOC: CHSCARD 07:18
PROVIDERS: PCP Internal Medicine; Visit Provider Internal Medicine
DX: I48.91 Unspecified atrial fibrillation (principal)
CPT/HCPCS: 93225; 93226

== ENCOUNTER 2022-11-23 14:17 | Outpatient (CLI) | payer MEDICARE, SELFPAY ==
--- NOTE | 2022-11-23 14:51 | ECG_ITS ---
Measurements Intervals [place] Rate: 59 P: 47 [place]: 165 QRS: 25 QRSD: 86 T: 61 QT: 450 QTc: 448 Interpretive Statements SINUS BRADYCARDIA WITH MARKED SINUS ARRHYTHMIA LOW QRS VOLTAGE IN PRECORDIAL LEADS [QRS DEFLECTION < 1.0 mV IN CHEST LEADS] NO PREVIOUS ECG AVAILABLE FOR COMPARISON Electronically Signed On 11-24-2022 8:31:28 NET APPLICATION SUPPORT SPECIALIST by Daphnie Reese M.D.
--- NOTE | 2022-11-23 15:19 | ECHO_ITS ---
Patient Info Name: Marianna Louis Age: 82 years : 1940 Gender: Female Ht: 65 in Wt: 149 lbs BSA: 1.77 m2 HR: 64 bpm BP: 144 / 78 mmHg Technical Quality: Good Exam Date: 11/23/2022 3:30 PM Exam Location: [facility] Patient Status: Outpatient Admit Date: 11/23/2022 Staff Ordering Physician: Noemi Marquez MD Ciaio Counter Molder: Carroll Chris RDCS, RT Attending Provider: Noemi Marquez MD Referring Physician: Jimmy MCCRAY; Exam Type: CA echo doppler color flow Study Info Indications I48.1 - Persistent atrial fibrillation Complete two-dimensional, color flow and Doppler transthoracic echocardiogram is performed. Strain analysis performed. Summary 1. Complete two-dimensional, color flow and Doppler transthoracic echocardiogram is performed. 2. Left ventricular chamber dimension is normal. 3. Left ventricular systolic function is normal, estimated at 60-65%. 4. There is moderate concentric increased left ventricular wall thickness. 5. The left ventricular diastolic function is abnormal. 6. E/e' 10 is mildly elevated. 7. Left atrial chamber dimension is mildly enlarged. 8. There is trace tricuspid valve regurgitation. 9. No pulmonary hypertension, estimated pulmonary arterial systolic pressure is 31 mmHg. 10. There is trace pulmonic regurgitation. Left Ventricle E/e' 10 is mildly elevated. Left ventricular chamber dimension is normal. Left ventricular systolic function is normal, estimated at 60-65%. There is moderate concentric increased left ventricular wall thickness. The left ventricular diastolic function is abnormal. Right Ventricle Right ventricular systolic function is normal and with normal TAPSE 2.3 cm. Right ventricular chamber dimension is normal. Left Atria Left atrial chamber dimension is mildly enlarged. Right Atria Right atrial chamber dimension is normal. Aortic Valve The aortic valve is trileaflet. There is no aortic valve stenosis. There is no aortic valve regurgitation. Pulmonic Valve There is trace pulmonic regurgitation. Mitral Valve There is no mitral valve stenosis. There is no mitral valve regurgitation. Tricuspid Valve There is trace tricuspid valve regurgitation. No pulmonary hypertension, estimated pulmonary arterial systolic pressure is 31 mmHg. Pericardium/Pleural There is no pericardial effusion. Inferior Vena Cava Normal inferior vena cava with >50% collapse upon inspiration consistent with normal right atrial pressure, 5 mmHg. Aorta The aortic root size at the sinus of Valsalva is normal. Left Ventricular Outflow Tract Name Value Normal LVOT 2D LVOT Diameter 2.0 cm LVOT Doppler LVOT Peak Velocity 84 cm/s LVOT Peak Gradient 3 mmHg LVOT Mean Gradient 2 mmHg LVOT VTI 18 cm LVOT VTI/AV VTI Ratio 0.7 LVOT Stroke Volume 58 ml Mitral Valve Name Value N
== END 2022-11-23 14:18 | disposition home or self-care (01) ==
LOC: CHSIMG 14:19
PROVIDERS: PCP Internal Medicine; Visit Provider Internal Medicine
DX: I48.91 Unspecified atrial fibrillation (principal); I51.7 Cardiomegaly; R00.1 Bradycardia, unspecified
CPT/HCPCS: 93005; 93306

== ENCOUNTER 2022-12-06 12:15 | Emergency (ER) | payer MEDICARE, SELFPAY ==
[2022-12-06] VITALS (13 sets, daily range): BP systolic 125–142; BP diastolic 59–87; PULSE 50–66; RESP 18–20; TEMP 35.8; O2SAT 91–100
--- NOTE | ~2022-12-06 | CT_ITS ---
EXAMINATION: CTA chest PE protocol DATE: 12/06/2022 13:58 OFFICE AUTOMATION CLERK INDICATION: Elevated d-dimer. Bradycardia. Low blood pressure. TECHNIQUE: Computed tomographic angiography (CTA) of the chest was performed with 100 mL Omnipaque-35 0 intravenous contrast. The dose-length product was 484.91 mGy-cm. Maximum intensity projection 3D-re constructions of the aorta and other arteries were constructed by the technologist on a separate work station. Automated exposure control and iterative reconstruction technique were employed. COMPARISON: CT dated 10/31/2020. FINDINGS: Study is technically limited by contrast bolus timing and motion. No large central pulmonar y embolism. Pulmonary arteries appear mildly enlarged. Small pleural effusions. Cardiomegaly. There i s a hiatal hernia. No endobronchial lesions. No pneumothorax. There is dependent atelectasis. Mild th oracic spondylosis. IMPRESSION: 1. Study technically limited. No large central pulmonary embolism. 2: Bilateral pleural effusions, right greater than left. 3: Cardiomegaly. Reviewed, dictated and finalized at location L. CE AUTOMATION CLERK
--- NOTE | 2022-12-06 12:20 | ECG_ITS ---
Measurements Intervals [place] Rate: 41 P: 47 [place]: 150 QRS: 52 QRSD: 86 T: 55 QT: 558 QTc: 466 Interpretive Statements SINUS BRADYCARDIA WITH PREMATURE ATRIAL CONTRACTIONS PROLONGED QT INTERVAL ABNORMAL ECG COMPARED TO ECG 11/23/2022 14:40:06 PROLONGED QT INTERVAL NOW PRESENT Electronically Signed On 12-06-2022 12:43:05 HORSE GROOMER by Jim Omalley M.D.
[2022-12-06 12:43] LABS: Hematocrit 36.8 % (35.0-42.0); Hemoglobin 12.3 g/dL (11.7-13.8); Mean Corpuscular HGB Conc 33.4 g/dL (32.0-36.0); Mean Corpuscular Hemoglobin 33.2 pg (27.0-31.0); Mean Corpuscular Volume 99.2 fL (78.0-102.0); Mean Platelet Volume 11.7 fl (9.2-11.8); Platelet Count Result 168 K/mm3 (150-420); Red Blood Count 3.71 M/mm3 (4.20-5.40); Red Cell Distribution Width 13.1 % (11.6-14.4); White Blood Count 8.3 K/mm3 (4.8-10.8)
[2022-12-06] MEDS: SODIUM CHLORIDE 0.9% IV 1,000 ML 999 ML IV CONT (12:46)
[2022-12-06] MEDS: ATROPINE SULFATE 1 MG/10 ML SYRINGE IV PUSH (12:48)
[2022-12-06 12:57] LABS: Band Neutrophils Percent 0 % (0-6); Eosinophils Absolute Manual 1.32 K/mm3 (0.02-0.5); Eosinophils Percent Manual 16 % (1-6); Lymphocytes Absolute Manual 2.07 K/mm3 (1.1-4.5); Lymphocytes Percent Manual 25 % (18-44); Monocytes Absolute Manual 0.74 K/mm3 (0.1-0.90); Monocytes Percent Manual 9 % (3-9); Neutrophils Absolute Manual 4.15 K/mm3 (1.7-7.2); Neutrophils Percent Manual 50 % (46-73); Platelet Estimate Adequate (Adequate); Total Cells Counted 100
[2022-12-06 13:03] LABS: D Dimer 0.91 mg/L (0.19-0.50)
[2022-12-06 13:14] LABS: Alanine Aminotransferase 26 U/L (14-59); Albumin Level 3.7 g/dL (3.4-5.0); Alkaline Phosphatase 62 U/L (46-116); Anion Gap 7 mmol/L (8-16); Aspartate Amino Transferase 44 U/L (15-37); Bilirubin,Total 0.5 mg/dL (0.00-1.00); Blood Urea Nitrogen 17 mg/dL (7-18); Calcium 9.4 mg/dL (8.5-10.1); Carbon Dioxide 28 mmol/L (21-32); Chloride 103 mmol/L (98-108); Estimated CRCL calculation 41 ml/min; Estimated Glomerular Filt Rate 51; Glucose 110 mg/dL (70-99); NT Pro B Type Natriuretic Pept 715 pg/mL (0-450); Osmolality Calculated 288 mOsm/kg (285-295); Potassium 4.3 mmol/L (3.5-5.1); Sodium 138 mmol/L (136-145); Thyroid Stimulating Hormone 2.29 uIU/mL (0.36-3.74); Total Protein 6.8 g/dL (6.4-8.2); Troponin I 10.2 ng/L (0.00-60.4)
--- NOTE | 2022-12-06 14:13 | ECG_ITS ---
Measurements Intervals [place] Rate: 58 P: 50 MA: 183 QRS: 19 QRSD: 89 T: 55 QT: 351 QTc: 345 Interpretive Statements SINUS BRADYCARDIA OTHERWISE NORMAL ECG COMPARED TO ECG 12/06/2022 12:42:24 PROLONGED QT INTERVAL NO LONGER PRESENT Electronically Signed On 12-06-2022 15:12:59 EASEMENT WORKER by Jim Omalley M.D.
--- NOTE | 2022-12-06 14:59 | ED.ARRPALP ---
HPI - Arrhythmia/Palpitations General Chief Complaint: Arrhythmia/Palpitations Stated Complaint: low pulse Time Seen by Provider: 12/06/22 12:20 Source: patient and family Mode of arrival: ambulatory Limitations: no limitations History of Present Illness HPI narrative: this is an 82-year-old female with a history of hypertension has had her metoprolol adjusted prior primary care physician, and was in to see her primary for blood pressure check and it was noted that she had bradycardia at a rate of 33 to 38 asymptomatic, with no chest pain no shortness of breath no fever chills no nausea vomiting or abdominal pain no diarrhea constipation. Patient had her metoprolol adjusted from 20/5 b.i.d. down to 12.5 b.i.d. but continued to have as noted per Primary heart rate in the in the 30s. MD complaint: skipped beats ( bradycardic) Onset (ago): hour(s) Duration: constant Severity: mild Context: occurred during rest Related Data Home Medications Medication Instructions Recorded Confirmed allopurinol 300 mg tablet 300 mg PO DAILY 12/06/22 12/06/22 amlodipine 5 mg tablet 5 mg PO DAILY 12/06/22 12/06/22 celecoxib 200 mg capsule 200 mg PO DAILY 12/06/22 12/06/22 gabapentin 300 mg capsule 300 mg PO HS 12/06/22 12/06/22 hydrochlorothiazide 12.5 mg tablet 12.5 mg PO DAILY 12/06/22 12/06/22 ipratropium bromide 42 mcg (0.06 1 spray intranasal DAILY PRN 12/06/22 12/06/22 %) nasal spray Congestion letrozole 2.5 mg tablet 2.5 mg PO DAILY 12/06/22 12/06/22 losartan 100 mg tablet 100 mg PO DAILY 12/06/22 12/06/22 metoprolol tartrate 25 mg tablet 25 mg PO DAILY 12/06/22 12/06/22 potassium chloride 20 mEq 20 meq PO BID 12/06/22 12/06/22 tablet,extended release(part/cryst) pravastatin 20 mg tablet 20 mg PO DAILY 12/06/22 12/06/22 solifenacin 10 mg tablet 10 mg PO DAILY 12/06/22 12/06/22 Allergies Allergy/AdvReac Type Severity Reaction Status Date / Time No Known Allergies Allergy Unknown Verified 02/23/23 13:17 Review of Systems Review of Systems: All systems reviewed & are unremarkable except as noted in HPI and below [facility] Past Medical History Medical History HLD (hyperlipidemia) HTN (hypertension) Exam Const: General: healthy appearing Nutritional Appearance: well nourished Orientation/consciousness: patient oriented x3 Limitations: no limitations HENMT: Head: normal to inspection Face/Nose/Sinus: Normal external nose present Face and sinus: normal facial exam Eyes: Conjunctivae: conjunctivae normal Pupils: Equal, round and reactive pupils present EOM: EOMs intact bilaterally Neck: Neck: normal visual inspection Chest: Chest palpation & inspection: normal inspection of the chest Resp: Effort & Inspection: normal respiratory effort Cardio: Rate: regular rate Rhythm: regular rhythm GI: Auscultation: normal bowel sounds : General: Yes bladder normal to palpation Urinary Catheter: Urinary Catheter: patent and draining Back/Spine/Pelvis: Back: no CVA tenderness Skin: General skin exam: normal color Rashes: no rashes Wounds: no wounds Neuro: General: patient oriented x3 and moves all extremities Cranial nerves: Yes Nystagmus not present Extrem: General: normal to inspection Psych: Mental Status: mental status grossly normal Course Course Emergency Course: patient with some heart rate of 38 received a dose of 1mg IV atropine and monitoring heart rate currently she is between 58 and 63 heart rate, otherwise asymptomatic no chest pain no shortness of breath. Patient did have elevated D-dimer and CTA performed showed no acute pulmonary embolism. Rest of her blood work was unremarkable troponins were negative her BNP was marginally elevated at 715. Spoke with some cardiology group and agreed that it was safe to discharge patient and with close follow-up. Also advise patient to discontinue metoprolol until seen by her it service delivery manager. Vital Signs Vit
--- NOTE | 2022-12-06 19:31 | PC.NURSE ---
On 12/06/22, the student, [LEEANNA DUVAL ], provided care and completed [facility] documentation on this patient. I have reviewed the student's documentation and agree with the findings.
== END 2022-12-06 15:25 | disposition home or self-care (01) ==
PROVIDERS: Emergency Provider Emergency Medicine; PCP Internal Medicine
DX: R00.1 Bradycardia, unspecified (principal); I10 Essential (primary) hypertension; E78.5 Hyperlipidemia, unspecified
CPT/HCPCS: 36415; 71275; 80053; 83880; 84443; 84484; 85025; 85380; 93005; 96361; 96374; 99284; J0461; J7030; Q9967

== ENCOUNTER 2023-01-31 09:58 | Outpatient (CLI) | payer MEDICARE, SELFPAY ==
[2023-01-31 10:15] LABS: Hematocrit 39.3 % (35.0-42.0); Hemoglobin 12.9 g/dL (11.7-13.8); Mean Corpuscular HGB Conc 32.8 g/dL (32.0-36.0); Mean Corpuscular Hemoglobin 32.3 pg (27.0-31.0); Mean Corpuscular Volume 98.5 fL (78.0-102.0); Mean Platelet Volume 10.8 fl (9.2-11.8); Platelet Count Result 183 K/mm3 (150-420); Red Blood Count 3.99 M/mm3 (4.20-5.40); Red Cell Distribution Width 13.2 % (11.6-14.4); White Blood Count 6.1 K/mm3 (4.8-10.8)
[2023-01-31 10:40] LABS: Band Neutrophils Percent 0 % (0-6); Basophils Absolute Manual 0.12 K/mm3 (0-0.1); Basophils Percent Manual 2 % (0-1); Eosinophils Absolute Manual 0.73 K/mm3 (0.02-0.5); Eosinophils Percent Manual 12 % (1-6); Lymphocytes Percent Manual 28 % (18-44); Monocytes Percent Manual 5 % (3-9); Neutrophils Absolute Manual 3.23 K/mm3 (1.7-7.2); Neutrophils Percent Manual 53 % (46-73); Total Cells Counted 100
[2023-01-31 10:41] LABS: Platelet Estimate Adequate (Adequate)
== END 2023-01-31 09:59 | disposition home or self-care (01) ==
LOC: CHSLAB 10:01
PROVIDERS: PCP Internal Medicine; Visit Provider Internal Medicine
DX: D72.10 Eosinophilia, unspecified (principal); I10 Essential (primary) hypertension
CPT/HCPCS: 36415; 85025

== ENCOUNTER 2023-02-20 16:11 | Outpatient (CLI) | payer MEDICARE, SELFPAY ==
[2023-02-20 16:29] LABS: Hematocrit 39.2 % (35.0-42.0); Mean Corpuscular HGB Conc 33.2 g/dL (32.0-36.0); Mean Corpuscular Hemoglobin 32.6 pg (27.0-31.0); Mean Corpuscular Volume 98.2 fL (78.0-102.0); Mean Platelet Volume 11.2 fl (9.2-11.8); Platelet Count Result 187 K/mm3 (150-420); Red Blood Count 3.99 M/mm3 (4.20-5.40); Red Cell Distribution Width 13.2 % (11.6-14.4); White Blood Count 8.8 K/mm3 (4.8-10.8)
[2023-02-20 16:42] LABS: D Dimer 0.46 mg/L (0.19-0.50)
[2023-02-20 16:50] LABS: Anion Gap 7 mmol/L (8-16); Blood Urea Nitrogen 14 mg/dL (7-18); Calcium 9.2 mg/dL (8.5-10.1); Carbon Dioxide 30 mmol/L (21-32); Chloride 101 mmol/L (98-108); Estimated Glomerular Filt Rate 51; Glucose 146 mg/dL (70-99); NT Pro B Type Natriuretic Pept 230 pg/mL (0-450); Osmolality Calculated 289 mOsm/kg (285-295); Sodium 138 mmol/L (136-145)
[2023-02-20 17:05] LABS: Total Cells Counted 100
[2023-02-20 17:06] LABS: Band Neutrophils Percent 0 % (0-6); Eosinophils Percent Manual 16 % (1-6); Lymphocytes Absolute Manual 2.55 K/mm3 (1.1-4.5); Lymphocytes Percent Manual 29 % (18-44); Monocytes Absolute Manual 0.35 K/mm3 (0.1-0.90); Monocytes Percent Manual 4 % (3-9); Neutrophils Absolute Manual 4.48 K/mm3 (1.7-7.2); Neutrophils Percent Manual 51 % (46-73); Platelet Estimate Adequate (Adequate)
== END 2023-02-20 16:12 | disposition home or self-care (01) ==
LOC: CHSLAB 16:13
PROVIDERS: PCP Internal Medicine; Visit Provider Internal Medicine
DX: M79.89 Other specified soft tissue disorders (principal); I50.9 Heart failure, unspecified
CPT/HCPCS: 36415; 80048; 83880; 85025; 85380

== ENCOUNTER 2023-02-28 09:26 | Outpatient (CLI) | payer MEDICARE, SELFPAY ==
[2023-02-28 10:04] LABS: Anion Gap 7 mmol/L (8-16); Blood Urea Nitrogen 20 mg/dL (7-18); Calcium 9.1 mg/dL (8.5-10.1); Carbon Dioxide 30 mmol/L (21-32); Chloride 98 mmol/L (98-108); Estimated Glomerular Filt Rate 48; Glucose 145 mg/dL (70-99); Osmolality Calculated 285 mOsm/kg (285-295); Potassium 3.9 mmol/L (3.5-5.1); Sodium 135 mmol/L (136-145)
== END 2023-02-28 09:27 | disposition home or self-care (01) ==
LOC: CHSLAB 09:29
PROVIDERS: PCP Internal Medicine; Visit Provider Internal Medicine
DX: I10 Essential (primary) hypertension (principal)
CPT/HCPCS: 36415; 80048

== ENCOUNTER 2023-07-09 08:44 | Outpatient (CLI) | payer MEDICARE, SELFPAY ==
[2023-07-09 09:03] LABS: Basophils Absolute Auto 0.08 K/mm3 (0.00-0.10); Basophils Percent Auto 1.2 % (0.0-1.0); Eosinophils Absolute Auto 0.64 K/mm3 (0.02-0.50); Eosinophils Percent Auto 9.8 % (1.0-6.0); Hematocrit 39.4 % (35.0-42.0); Hemoglobin 13.1 g/dL (11.7-13.8); Immature Granulocyte Absolute 0.02 K/mm3 (0.00-0.00); Immature Granulocyte Percent A 0.3 % (0.0-0.0); Lymphocytes Absolute Auto 1.32 K/mm3 (1.10-4.50); Lymphocytes Percent Auto 20.2 % (18.0-42.0); Mean Corpuscular HGB Conc 33.2 g/dL (32.0-36.0); Mean Corpuscular Hemoglobin 32.6 pg (27.0-31.0); Mean Platelet Volume 10.7 fl (9.2-11.8); Monocytes Absolute Auto 0.55 K/mm3 (0.10-0.90); Monocytes Percent Auto 8.4 % (2.0-11.0); Neutrophils Absolute Auto 3.9 K/mm3 (1.7-7.2); Neutrophils Percent Auto 60.1 % (50.0-70.0); Platelet Count Result 195 K/mm3 (150-420); Red Blood Count 4.02 M/mm3 (4.20-5.40); Red Cell Distribution Width 13.2 % (11.6-14.4); White Blood Count 6.5 K/mm3 (4.8-10.8)
[2023-07-09 09:13] LABS: Appearance Urine Clear (Clear); Bilirubin Urine Negative (Negative); Blood Urine Negative (Negative); Color Urine Light Yellow (Yellow); Glucose Urine UA Negative (Negative); Ketones Urine Negative (Negative); Leukocyte Esterase Ur Trace LEU/UL (Negative); Nitrate Urine Negative (Negative); Protein Urine Negative (Negative); Specific Grav Ur 1.015 (1.010-1.020); Urobilinogen Urine 0.2 mg/dL (0.2-1.0)
[2023-07-09 09:18] LABS: Add Urine Microscopic? YES; Bacteria Urine Rare /hpf; RBC Urine None seen /hpf (0-2); WBC Urine None seen /hpf (0-3)
[2023-07-09 09:19] LABS: Creatinine Urine 67.11 mg/dL (40-278); MALB Creatinine Ratio 19.3 mg/g (0-30); Microalbumin Urine Random < 13.0 mg/L
[2023-07-09 09:25] LABS: Hemoglobin A1C 6.2 % (<5.7)
[2023-07-09 10:40] LABS: Albumin Level 3.7 g/dL (3.4-5.0); Alkaline Phosphatase 60 U/L (46-116); Anion Gap 10 mmol/L (8-16); Aspartate Amino Transferase 43 U/L (15-37); Bilirubin,Total 0.8 mg/dL (0.00-1.00); Blood Urea Nitrogen 14 mg/dL (7-18); Calcium 9.4 mg/dL (8.5-10.1); Carbon Dioxide 26 mmol/L (21-32); Chloride 103 mmol/L (98-108); Cholesterol 183 mg/dL (0-200); Creatine Kinase 79 U/L (26-192); Estimated Glomerular Filt Rate 60; Free T3 2.67 pg/mL (2.18-3.98); Glucose 122 mg/dL (70-99); HDL Direct 94 mg/dL (40-60); LDL Cholesterol Calculated 74 mg/dL (<130); Osmolality Calculated 289 mOsm/kg (285-295); Potassium 4.1 mmol/L (3.5-5.1); Sodium 139 mmol/L (136-145); Thyroid Stimulating Hormone 1.45 uIU/mL (0.36-3.74); Total Protein 6.4 g/dL (6.4-8.2); Triglycerides 77 mg/dL (0-150); Uric Acid 3.7 mg/dL (2.6-6.0)
[2023-07-09 10:51] LABS: Alanine Aminotransferase 18 U/L (14-59)
== END 2023-07-09 08:45 | disposition home or self-care (01) ==
LOC: CHSLAB 08:46
PROVIDERS: PCP Internal Medicine; Visit Provider Internal Medicine
DX: N39.0 Urinary tract infection, site not specified (principal); I10 Essential (primary) hypertension; E78.2 Mixed hyperlipidemia; E11.9 Type 2 diabetes mellitus without complications; E79.0 Hyperuricemia without signs of inflammatory arthritis and tophaceous disease
CPT/HCPCS: 36415; 80053; 80061; 81001; 82043; 82550; 83036; 84439; 84443; 84481; 84550; 85025

== ENCOUNTER 2023-07-30 13:51 | Outpatient (RCR) | payer MEDICARE, SELFPAY ==
--- NOTE | 2023-07-30 15:24 | OPREHPOC ---
Outpatient Therapy Plan of Care This is a Multidisciplinary Plan of Care that may contain components documented by all disciplines (PT, OT, and ST.) PT Problem 1 PT Problem #1 Knowledge Deficit PT Goal 1 Goal Patient to demonstrate independence with HEP Target Visit 4 PT Problem 2 PT Problem #2 Impaired Range of Motion PT Goal 1 Goal Patient to demonstrate 160 deg of R shoulder AROM flexion to return to reaching into cabinets and closets at [facility] PT Problem 3 PT Problem #3 Impaired Strength PT Goal 1 Goal Patient to demonstrate 4+/5 strength of R shoulder to return to house hold tasks at [facility] PT Problem 4 PT Problem #4 Impaired Functional Mobil PT Goal 1 Goal 1. Patient to report ability to fix her hair with no R shoulder pain. 2. Patient to report ability to hang up laundry with no limitations
--- NOTE | 2023-07-30 15:25 | OPREHPOC ---
Outpatient Therapy Plan of Care This is a Multidisciplinary Plan of Care that may contain components documented by all disciplines (PT, OT, and ST.) PT Problem 1 PT Problem #1 Knowledge Deficit PT Goal 1 Goal Patient to demonstrate independence with HEP Target Visit 4 PT Problem 2 PT Problem #2 Impaired Range of Motion PT Goal 1 Goal Patient to demonstrate 160 deg of R shoulder AROM flexion to return to reaching into cabinets and closets at PLOF Target Visit 8 PT Problem 3 PT Problem #3 Impaired Strength PT Goal 1 Goal Patient to demonstrate 4+/5 strength of R shoulder to return to house hold tasks at PLOF Target Visit 8 PT Problem 4 PT Problem #4 Impaired Functional Mobil PT Goal 1 Goal 1. Patient to report ability to fix her hair with no R shoulder pain. 2. Patient to report ability to hang up laundry with no limitations Target Visit 8
--- NOTE | 2023-07-30 15:25 | PTOPEVAL1 ---
Assessment and note entered by Jada Ku DPT Evaluation Information Assessment Status Evaluation Diagnosis R shoulder pain Onset 06/14/23 Subjective Information Patient reports no injury but R shoulder started hurting about a month ago. She reports she does not have pain at rest just when she is using the arm. She reports difficulty with fixing her hair, reaching into cabinets and reaching out to the side. She reports she has not had any imaging but thinks it is arthritis. Reported Pain Level Pain Score 0: Self Report Assessment PT Clinical Summary Mrs. Louis is a 82 year old female who presents to PT with R shoulder pain. Patient demonstrates decreased R shoulder AROM, decreased R shoulder strength. and tenderness to the proximal R bicep. Patient demonstrates more R shoulder PROM than AROM indicating probable muscular involvement. Patient has difficulty with fixing her hair, reaching into cabinets and closets and completing house hold tasks. Patient woud benefit from skilled PT to address impairments and return to PLOF. Plan of Care Interventions Electrical Stimulation,Hot Pack/Cold Pack,Manual Therapy,Mechanical Traction,Neuro Re-education, Patient/Caregiver Educati,Therapeutic Activities, Therapeutic Exercise Treatment Frequency and 2x weekly for 8 visits Duration These treatments will address the objective and functional deficits as defined above. The patient will be advanced safely and appropriately in order for the patient to progress towards his/her prior level of function. Additional exercises will be introduced and as well as a comprehensive home exercise program upon discharge, if needed, ?to ensure carryover of functional gains achieved in the clinic. This treatment plan has been reviewed and agreement upon by the patient.
--- NOTE | 2023-09-03 12:10 | OPREHPOC ---
Outpatient Therapy Plan of Care This is a Multidisciplinary Plan of Care that may contain components documented by all disciplines (PT, OT, and ST.) PT Problem 1 PT Problem #1 Knowledge Deficit PT Goal 1 Goal Patient to demonstrate independence with HEP Target Visit 4 Progress Met PT Goal 2 Goal New goal: Pt to demonstrate independence in a home exercise program for bilateral shoulder and scapular strengthening. Target Visit 16 PT Problem 2 PT Problem #2 Impaired Range of Motion PT Goal 1 Goal Patient to demonstrate 160 deg of R shoulder AROM flexion to return to reaching into cabinets and closets at PLOF Target Visit 8 Comment -progress towards, continue PT Problem 3 PT Problem #3 Impaired Strength PT Goal 1 Goal Patient to demonstrate 4+/5 strength of R shoulder to return to house hold tasks at PLOF Target Visit 8 Progress Partially Met Comment -progress towards, continue PT Problem 4 PT Problem #4 Impaired Functional Mobil PT Goal 1 Goal 1. Patient to report ability to fix her hair with no R shoulder pain. 2. Patient to report ability to hang up laundry with no limitations Target Visit 8 Progress Partially Met Comment -progress towards, continue
--- NOTE | 2023-09-03 12:10 | PTOPPROG ---
Assessment and note entered by Lima Londono, PT Evaluation Information Assessment Status Progress Diagnosis R shoulder pain Onset 06/14/23 Subjective Information Marianna Louis reports she is having less pain but she still gets pain with certain movements. She is having difficulty with reaching to the back of her head for washing her hair and grooming her hair, reaching into overhead cabinets to get out or put away dishes, and lifting her arm past shoulder height. She feels the PT is helping as she has less constant pain but she needs to work on strength. Assessment PT Clinical Summary Marianna Louis has completed 8 skilled PT visits for right shoulder pain. She is reporting the pain has become less constant but still occurs with certain movements. She also notes weakness and has difficulty washing and grooming the back of her hair, reaching into overhead cabinets, and lifting past shoulder height. She objectively demonstrates improved right shoulder AROM. She continues to demonstrate weakness in the right shoulder effecting her ability to perform daily activities. She will continue to benefit from skilled PT to further address ongoing deficits and return her to her PLOF. Plan of Care Interventions Electrical Stimulation,Hot Pack/Cold Pack,Manual Therapy,Patient/Caregiver Educati,Therapeutic Activities,Therapeutic Exercise PT Services Indicated Yes Treatment Frequency and Continue skilled PT 2 times a week for 8 visits Duration These treatments will address the objective and functional deficits as defined above. The patient will be advanced safely and appropriately in order for the patient to progress towards his/her prior level of function. Additional exercises will be introduced and as well as a comprehensive home exercise program upon discharge, if needed, ?to ensure carryover of functional gains achieved in the clinic. This treatment plan has been reviewed and agreement upon by the patient.
[2023-10-17 13:40] VITALS: BP_SYST 180
--- NOTE | 2023-10-17 14:42 | OPREHPOC ---
Outpatient Therapy Plan of Care This is a Multidisciplinary Plan of Care that may contain components documented by all disciplines (PT, OT, and ST.) PT Problem 1 PT Problem #1 Knowledge Deficit PT Goal 1 Goal Patient to demonstrate independence with HEP Target Visit 4 Progress Met PT Goal 2 Goal New goal: Pt to demonstrate independence in a home exercise program for bilateral shoulder and scapular strengthening. Target Visit 16 Progress Met PT Problem 2 PT Problem #2 Impaired Range of Motion PT Goal 1 Goal Patient to demonstrate 160 deg of R shoulder AROM flexion to return to reaching into cabinets and closets at PLOF Target Visit 8 Progress Not Met Comment -progress towards, continue PT Problem 3 PT Problem #3 Impaired Strength PT Goal 1 Goal Patient to demonstrate 4+/5 strength of R shoulder to return to house hold tasks at PLOF Target Visit 8 Progress Partially Met Comment progress towards, continue PT Problem 4 PT Problem #4 Impaired Functional Mobil PT Goal 1 Goal 1. Patient to report ability to fix her hair with no R shoulder pain. 2. Patient to report ability to hang up laundry with no limitations Target Visit 8 Progress Partially Met Comment -progress towards, continue
--- NOTE | 2023-10-17 14:43 | PTOPDC ---
Assessment and note entered by Jada Ku DPT Evaluation Information Assessment Status Re-evaluation Diagnosis R shoulder pain Onset 06/14/23 Subjective Information Patient reports pain and ROM have improved but she continues to lack R UE strength. She reports her pain feels like arthritis pain. she reports if she swings her arm she is able to do her hair. she reports certain movements will increase her pain significantly. She reports she is indpendent with HEP Reported Pain Level Pain Score 2,2,2: Self Report Assessment PT Clinical Summary Mrs. Louis has been seen for 15 visits of skilled PT. She made functional progress during POC but demonstrate limited objective improvements . She continues to lack ROM and strength of the R shoulder. She does report improvement with ability to fix her hair and complete house hold tasks. She would benefit from further imagining to determine next steps in care. Patient will be discharged from PT at this time. Plan of Care PT Services Indicated No
== END 2023-10-17 16:19 | disposition home or self-care (01) ==
LOC: CHSPT 13:51
PROVIDERS: PCP Internal Medicine; Visit Provider Internal Medicine
DX: M25.511 Pain in right shoulder (principal); M25.611 Stiffness of right shoulder, not elsewhere classified
CPT/HCPCS: 97014; 97110; 97140; 97161; G0283

== ENCOUNTER 2024-01-24 09:12 | Outpatient (CLI) | payer MEDICARE, SELFPAY ==
[2024-01-24 09:31] LABS: Basophils Absolute Auto 0.05 K/mm3 (0.00-0.10); Basophils Percent Auto 0.9 % (0.0-1.0); Eosinophils Absolute Auto 0.48 K/mm3 (0.02-0.50); Eosinophils Percent Auto 8.2 % (1.0-6.0); Hematocrit 35.6 % (35.0-42.0); Hemoglobin 11.3 g/dL (11.7-13.8); Immature Granulocyte Absolute 0.02 K/mm3 (0.00-0.00); Immature Granulocyte Percent A 0.3 % (0.0-0.0); Lymphocytes Absolute Auto 1.43 K/mm3 (1.10-4.50); Lymphocytes Percent Auto 24.4 % (18.0-42.0); Mean Corpuscular HGB Conc 31.7 g/dL (32-36); Mean Corpuscular Hemoglobin 31.4 pg (27.0-31.0); Mean Corpuscular Volume 98.9 fL (78.0-102.0); Mean Platelet Volume 11.9 fl (9.2-11.8); Monocytes Absolute Auto 0.43 K/mm3 (0.10-0.90); Monocytes Percent Auto 7.4 % (2.0-11.0); Neutrophils Absolute Auto 3.44 K/mm3 (1.70-7.20); Neutrophils Percent Auto 58.8 % (50.0-70.0); Platelet Count Result 197 K/mm3 (150-420); Red Cell Distribution Width 13.2 % (11.6-14.4); White Blood Count 5.9 K/mm3 (4.8-10.8)
[2024-01-24 09:40] LABS: Appearance Urine Clear (Clear); Bilirubin Urine Negative (Negative); Blood Urine Negative (Negative); Color Urine Light Yellow (Yellow); Glucose Urine UA Negative (Negative); Ketones Urine Negative (Negative); Leukocyte Esterase Ur Negative LEU/UL (Negative); Nitrate Urine Negative (Negative); Protein Urine Negative (Negative); Urobilinogen Urine 0.2 mg/dL (0.2-1.0)
[2024-01-24 09:51] LABS: Add Urine Microscopic? NO
[2024-01-24 09:59] LABS: Creatinine Urine 71.34 mg/dL (40-278); MALB Creatinine Ratio 27.7 mg/g (0-30); Microalbumin Urine Random 19.8 mg/L
[2024-01-24 11:12] LABS: Alanine Aminotransferase 21 U/L (14-59); Albumin Level 3.1 g/dL (3.4-5.0); Alkaline Phosphatase 97 U/L (46-116); Anion Gap 9 mmol/L (4-12); Aspartate Amino Transferase 51 U/L (15-37); Bilirubin,Total 0.4 mg/dL (0.00-1.00); Blood Urea Nitrogen 13 mg/dL (7-18); Calcium 8.1 mg/dL (8.5-10.1); Carbon Dioxide 26 mmol/L (21-32); Chloride 109 mmol/L (98-108); Cholesterol 106 mg/dL (0-200); Creatine Kinase 75 U/L (26-192); Estimated Glomerular Filt Rate > 60; Free T3 2.21 pg/mL (2.18-3.98); Free T4 Free Thyroxine 1.13 ng/dL (0.76-1.46); Glucose 108 mg/dL (70-99); HDL Direct 60 mg/dL (40-60); LDL Cholesterol Calculated 34 mg/dL (<130); Osmolality Calculated 299 mOsm/kg (285-295); Potassium 3.7 mmol/L (3.5-5.1); Sodium 144 mmol/L (136-145); Thyroid Stimulating Hormone 1.61 uIU/mL (0.36-3.74); Total Protein 5.8 g/dL (6.4-8.2); Triglycerides 62 mg/dL (0-150); Uric Acid 2.8 mg/dL (2.6-6.0)
[2024-01-24 11:35] LABS: Hemoglobin A1C 6.7 % (<5.7)
== END 2024-01-24 09:13 | disposition home or self-care (01) ==
LOC: CHSLAB 09:18
PROVIDERS: PCP Internal Medicine; Visit Provider Internal Medicine
DX: N39.0 Urinary tract infection, site not specified (principal); I10 Essential (primary) hypertension; E78.2 Mixed hyperlipidemia; E11.9 Type 2 diabetes mellitus without complications; E79.0 Hyperuricemia without signs of inflammatory arthritis and tophaceous disease; E03.9 Hypothyroidism, unspecified
CPT/HCPCS: 36415; 80053; 80061; 81003; 82043; 82550; 83036; 84439; 84443; 84481; 84550; 85025

== ENCOUNTER 2024-02-07 11:26 | Outpatient (CLI) | payer MEDICARE, SELFPAY ==
[2024-02-07 12:02] LABS: Basophils Absolute Auto 0.05 K/mm3 (0.00-0.10); Basophils Percent Auto 0.9 % (0.0-1.0); Eosinophils Absolute Auto 0.58 K/mm3 (0.02-0.50); Hematocrit 34.2 % (35.0-42.0); Immature Granulocyte Absolute 0.02 K/mm3 (0.00-0.00); Immature Granulocyte Percent A 0.3 % (0.0-0.0); Immature Reticulocyte Fraction 9.7 % (2.0-16.52); Lymphocytes Absolute Auto 1.11 K/mm3 (1.10-4.50); Lymphocytes Percent Auto 19.2 % (18.0-42.0); Mean Corpuscular HGB Conc 32.2 g/dL (32-36); Mean Corpuscular Hemoglobin 31.8 pg (27.0-31.0); Mean Corpuscular Volume 98.8 fL (78.0-102.0); Mean Platelet Volume 11.8 fl (9.2-11.8); Monocytes Absolute Auto 0.54 K/mm3 (0.10-0.90); Monocytes Percent Auto 9.3 % (2.0-11.0); Neutrophils Absolute Auto 3.48 K/mm3 (1.70-7.20); Neutrophils Percent Auto 60.3 % (50.0-70.0); Platelet Count Result 199 K/mm3 (150-420); Red Blood Count 3.46 M/mm3 (4.20-5.40); Red Cell Distribution Width 13.5 % (11.6-14.4); Reticulocyte Percent 1.24 % (0.50-1.50); Reticulocytes Absolute 0.04 M/mm3 (0.02-0.10); White Blood Count 5.8 K/mm3 (4.8-10.8)
[2024-02-07 12:49] LABS: Ferritin 122 ng/mL (8-252); Iron 82 ug/dL (50-170)
[2024-02-07 12:52] LABS: CRP < 0.5 mg/dL (0.0-0.9); Vitamin B12 > 2000 pg/mL (193-986)
[2024-02-07 13:06] LABS: Erythrocyte Sedimentation Rate 13 mm/hr (0-20)
[2024-02-10 14:34] LABS: Immunoglobulin A 137 mg/dL (70-320); TTG IGA AB <1.0 U/mL
[2024-02-10 17:39] LABS: Red Blood Cell Folate 625 ng/mL RBC (>280)
[2024-02-14 00:34] LABS: Myeloperoxidase Ab <1.0 AI (<1.0); Proteinase-3 Ab <1.0 AI (<1.0)
[2024-02-14 21:43] LABS: S cerevisiae Ab (IgA) 28.4 U (<=20.0); S cerevisiae Ab (IgG) 52.5 U (<=20.0)
[2024-02-14 22:03] LABS: ANCA Screen Negative (Negative)
== END 2024-02-07 11:27 | disposition home or self-care (01) ==
LOC: CHSLAB 11:28
PROVIDERS: PCP Internal Medicine; Visit Provider Internal Medicine
DX: R19.7 Diarrhea, unspecified (principal); R63.4 Abnormal weight loss; D64.9 Anemia, unspecified
CPT/HCPCS: 36415; 82607; 82728; 82747; 82784; 83516; 83540; 85025; 85046; 85652; 86036; 86140; 86671

== ENCOUNTER 2024-02-13 12:48 | Outpatient (CLI) | payer MEDICARE, SELFPAY ==
[2024-02-13 13:36] LABS: Occult Blood Negative (Negative)
[2024-02-13 13:36] LABS: Occult Blood Negative (Negative)
[2024-02-13 13:36] LABS: Occult Blood Negative (Negative)
[2024-02-18 14:38] LABS: Fecal Fat, Ql Abnormal (Normal)
== END 2024-02-13 12:49 | disposition home or self-care (01) ==
LOC: CHSLAB 12:50
PROVIDERS: PCP Internal Medicine; Visit Provider Internal Medicine
DX: R19.7 Diarrhea, unspecified (principal); D64.9 Anemia, unspecified; R63.4 Abnormal weight loss
CPT/HCPCS: 82272; 82705

== ENCOUNTER 2024-02-20 08:17 | Outpatient (CLI) | payer MEDICARE, SELFPAY ==
--- NOTE | ~2024-02-20 | CT_ITS ---
Clinical Indication: Weight loss CT Scan of the Chest, Abdomen, and Pelvis with Contrast: Technique: Contiguous sections were acquired throughout the chest, abdomen, and pelvis after intraven ous administration of 100 cc of Omnipaque 350. Dose reduction technique was used on this scan by uti lizing automated exposure control and iterative reconstruction technique. The dose-length product (DL P) was 428.38 mGy-cm. COMPARISON: 12/06/2022, 10/31/2020 Findings: There is no evidence of any significant mediastinal, hilar or axillary lymphadenopathy. The mediastin al soft tissues and vascular structures appear normal. There is no evidence of pleural or pericardial effusion. The lungs are clear. No pulmonary nodules or infiltrates are noted. The liver, spleen, gallbladder, adrenals and kidneys are within normal limits. There is an ill-define d hypodense mass measuring approximately 5.5 x 3.6 cm, centered at the pancreatic uncinate process, e xtensively encasing the SMA extensively abutting the distal duodenum, most compatible with pancreatic adenocarcinoma. There is diffuse dilatation of main pancreatic duct to 8 mm in diameter. No evidence of aortic aneurysm. No lymphadenopathy. No bowel obstruction or bowel wall thickening. There is no evidence to suggest acute appendicitis. Th ere is a 1.5 cm suspected peritoneal or serosal implant adjacent to the proximal transverse colon (ax ial image 119). Urinary bladder is unremarkable. No pelvic mass seen. No ascites. Impression: 5.5 x 3.6 cm ill-defined hypodense mass centered at the pancreatic uncinate process, most compatible with pancreatic adenocarcinoma, as detailed above. Suspected 1.5 cm peritoneal or serosal metastatic implant adjacent to the proximal transverse colon, as detailed above. Reviewed, dictated and finalized at location M. Impression: 5.5 x 3.6 cm ill-defined hypodense mass centered at the pancreatic uncinate pro cess, most compatible with pancreatic adenocarcinoma, as detailed above. Suspected 1.5 cm peritoneal or serosal metastatic implant adjacent to the proxi mal transverse colon, as detailed above.
== END 2024-02-20 08:18 | disposition home or self-care (01) ==
LOC: CHSIMG 08:17
PROVIDERS: PCP Internal Medicine; Visit Provider Internal Medicine
DX: R63.0 Anorexia (principal); R63.4 Abnormal weight loss; K86.9 Disease of pancreas, unspecified
CPT/HCPCS: 71260; 74177; Q9967